=== PATIENT | female | born 1935 | race Caucasian/White ===

== ENCOUNTER 2017-12-07 15:55 | Inpatient (IN) ==
[2017-12-07 16:14] VITALS: BMI 32.0
--- NOTE | 2017-12-07 16:20 | IRU History & Physical Report ---
HPI IRU Date: Date: 12/07/17 Time: 161 Chief complaint: My knee hurts HPI: Ms. Polo is a pleasant 82-year-old female referred by Dr. Briseno. Her primary care physician is Dr. Bernardo Ortiz. She was seen by Dr. Hudson on 2017. She was having a progressive problem with right knee pain secondary to primary degenerative arthritis. It was recommended the patient undergo a right total knee arthroplasty. She was admitted to the hospital on December 03 for the procedure which was done by Dr. Hudson without complications. The patient seemed to be stable and she was dismissed to home on December 04. She states that she was feeling well at the time of dismissal and seemed to be doing well with regard to therapy. She then presented to the emergency department today on 12/07/2017 with inability to ambulate around the house. She was having significant pain in the right knee. The patient had been taking oxycodone but that was discontinued because it was affecting her mental status. Patient is unable to ambulate and she has had ongoing pain which is 10 out of 10 in intensity. History is obtained from the patient as well as her daughter. Her daughter states that every time she takes the oxycodone she gets very confused and "loopy." She loses her memory. She is disoriented. She also has had nausea but has no emesis (has history of Ayaka fundoplication). She became so weak that she had to be carried to the bathroom. She had no strength in her arms. She simply could not be cared for at home at this time. She has a history of coronary artery disease as well as hypertension. She recalls that she has had at least 3 cardiac stent placements with the most recent being in 2008. Her steel fixer is Dr. Altamirano. In addition she has atrial fibrillation. Electrocardiogram did confirm this. She does not believe she has been on any other blood thinners besides Plavix plus aspirin. She is aware of having had atrial fibrillation but really cannot tell when she goes in or out of it. She does report that she has been in and out of atrial fibrillation in the past. She does have the use of Plavix and aspirin on a regular basis. Her hemoglobin on the day of surgery or shortly thereafter was 10.7 g percent. Today it is 9.6 g percent. She denies any evidence of overt bleeding in the GI tract etc. However she does feel extremely weak and fatigued. She also appears to be quite pale. She has struggled with constipation since the surgery. In addition, her liver enzymes are slightly elevated for uncertain reasons. She is a . She lives in a duplex at [facility]. She has been independent at home prior to this episode. She does use a single-point cane. She lives alone. Prior level of functioning is as follows: She was independent for eating, grooming, bathing, upper and lower body dressing and toileting. She was modified independent for bed/chair/wheelchair transfers, toilet transfers and walking with a single-point cane. Current level of functioning is as follows: She is independent for eating but requires moderate assistance for grooming, minimal assistance for upper body dressing but maximum assistance for lower body dressing. Bed/chair/wheelchair transfers are total assist. Walking is total assist with a rolling walker only 9 feet. She is unable to climb stairs. The patient is admitted to acute rehabilitation because of uncontrolled pain, confusion while on pain medications as well as atrial fibrillation and hypertension. The following medical conditions are noted and require active monitoring and/or management: 1. Uncontrolled pain and confusion while taking pain medication. 2. acute blood loss anemia 3. Paroxysmal atrial fibrillation 4. Slow transit constipation The following therapies will be needed: 1. Physical therapy: for transfers and ambulation and stairs. 2. Occupational therapy: for ADL's and transfers. 3. Medical management: for the above conditions. 4. 24 hour Rehabilitation Nursing to monitor and address the following: Monitor patient's cardiac status and rhythm, monitor blood pressure, provide adequate pain control and assessment. [facility] Patient Stated Medical History Coronary Artery Disease Yes: stents x2 Gastroesophageal Reflux Yes: S/P Ayaka Disease Hx Urinary Tract Infection Yes Anemia Yes Clinic Medical History (Last Reviewed 11/13/17 @ 07:35 by Bryson Hudson MD) Anxiety (Chronic Medical) CAD (coronary artery disease) (Chronic Medical) Depression (Chronic Medical) HTN (hypertension) (Chronic Medical) High cholesterol (Chronic Medical) Macular degeneration (Chronic Medical) Breast cancer (Resolved Medical) Heart attack (Resolved Medical) Medical History Updates: 1. Had breast lumpectomy and malignancy was found over 11 years ago. She saw an oncologist but states that she did not take any chemotherapy, hormonal therapy nor radiation. No recurrence has been noted. 2. Paroxysmal atrial fibrillation, not on anticoagulants except for Plavix and aspirin. 3. Primary degenerative arthritis of the knees. 4. Hypertension Surgical History: TRKA - Dr Hudson 12/03/17, stent LAD/RCA, lumbar surgery, hysterectomy, cholecystectomy, lumpectomy, b/l cataracts Family History: Family History (Last Reviewed 11/13/17 @ 07:35 by Byrson Hudson MD) Father COPD (chronic obstructive pulmonary disease) Mother Heart failure Family History Updates: reviewed. Patient states that her father actually from heart disease. He also smoked on a regular basis and had COPD. - Social History Smoking status: Never smoker Substance use type: does not use Alcohol intake: never Alcohol intake frequency: does not drink Housing: apartment (duplex, independently.) Household members: none Current occupational status: retired Current residence: Apartment/Private Home (lives at [facility] duplexes independently.) Social history: Patient lives alone. 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 Has been a about 15 years. Lives in a duplex at [facility]. Review of Systems - Constitutional Constitutional: Present: anorexia, fatigue, weakness. Absent: chills, fever(s) , headache(s), lethargy, malaise, night sweats, weight gain, weight loss - EENMT Eyes: Absent: blurry vision, change in vision, diplopia Mouth/Throat: Absent: changes in swallowing, painful swallowing, change in taste , bleeding gums, change in voice - Cardiovascular Cardiovascular: Absent: chest pain, palpitations, syncope, dyspnea on exertion, orthopnea, edema, cyanosis, heart murmur Rhythm: Present: abnormal rhythm Vascular: Absent: intermittent claudication, pedal edema, unilateral swelling - Respiratory Respiratory: Present: dyspnea (reports current dyspnea with activity.), dyspnea on exertion. Absent: cough, hemoptysis, wheezing, pain on inspiration, chest congestion, excessive phlegm production - Gastrointestinal Gastrointestinal: Present: constipation (severe constipation since the surgery.) . Absent: abdominal pain, change in bowel habits, diarrhea, dyspepsia, dysphagia, early satiety, hematochezia, melena, nausea, vomiting - Musculoskeletal Musculoskeletal: Present: arthralgias. Absent: abnormal gait, back pain, joint swelling, limited range of motion, muscle weakness - Integumentary/Breasts Integumentary: Absent: alopecia, erythema, lesions, pruritus, rash, jaundice - Neurological Neurological: Present: weakness. Absent: abnormal gait, abnormal movements, abnormal speech, confusion, convulsions, dizziness, focal weakness, frequent falls, headache(s), loss of vision, memory loss, numbness, paresthesias, tremor( s) - Psychiatric Psychiatric: Absent: abnormal sleep pattern, anxiety, depression - Endocrine Endocrine: Absent: cold intolerance, flushing, heat intolerance, palpitations - Hematologic/Lymphatic Hematologic/Lymphatic: Absent: easy bleeding, easy bruising, lymphadenopathy - Allergic/Immunologic Allergic/Immunologic: Absent: urticaria Medications Home Medications Medication Instructions Recorded Confirmed Type Aspirin [Ecotrin] 81 mg PO DAILY #0 10/14/10 12/07/17 History Levothyroxine Tab [Synthroid] 50 mcg PO DAILY #0 10/14/10 12/07/17 History Pantoprazole Sodium [Protonix] 40 mg PO DAILY #0 12/08/12 12/07/17 History Potassium Chloride 10 meq PO DAILY #0 12/08/12 12/07/17 History Simvastatin [Zocor] 40 mg PO HS #0 12/08/12 12/07/17 History Calcium Carbonate/Vitamin D3 1 tab PO BID 12/02/17 12/07/17 History [Calcium 600 + Vit D Tablet] Clopidogrel [Plavix] 75 mg PO DAILY 12/02/17 12/07/17 History Cyanocobalamin (Vitamin B-12) 2,500 mcg PO DAILY 12/02/17 12/07/17 History [Vitamin B12] Furosemide [Lasix] 40 mg PO DAILY 12/02/17 12/07/17 History Glucosamine/MSM/Chondroitin A 1 tab PO BID 12/02/17 12/07/17 History [Glucosamine Chondroit MSM Tab] Magnesium 250 mg PO DAILY 12/02/17 12/07/17 History Vit C/Vit E/Lutein/Min/Bucoda-3 1 cap PO DAILY 12/02/17 12/07/17 History [Ocuvite Softgel] Citalopram [Celexa] 30 mg PO DAILY 12/03/17 12/07/17 History Metoprolol Tartrate [Lopressor] 25 mg PO BID 12/03/17 12/07/17 History lamoTRIgine [Lamotrigine] 100 mg PO HS 12/03/17 12/07/17 History Acetaminophen [Tylenol] 650 mg PO QID tab 12/04/17 12/07/17 Rx Docusate Sodium [Colace] 100 mg PO BID cap 12/04/17 12/07/17 Rx Milk of Magnesia [Mom] 30 ml PO DAILY udc 12/04/17 12/07/17 Rx Oxycodone *IR* [Roxicodone *Ir*] 5 - 15 mg PO Q3H PRN #30 tab 12/04/17 12/07/17 Rx PEG 3350 17gm PACKET [Miralax] 17 gm PO DAILY packet 12/04/17 12/07/17 Rx Ergocalciferol (Vit. D2) [Vitamin 50,000 unit PO DAILY 12/07/17 12/07/17 History D-2] Allergies Allergy/AdvReac Type Severity Reaction Status Date / Time ticlopidine Allergy Unknown WIPED OUT Verified 12/07/17 11:56 HER WBC'S Results IRU - Labs Labs: Have reviewed chart records. Exam Vital Signs: Temperature 99.0 F 12/07/17 16:12 Pulse Rate 100 12/07/17 16:12 Respiratory Rate 18 12/07/17 16:12 Blood Pressure 139/72 12/07/17 16:12 Pulse Oximetry 95 12/07/17 16:12 Height/Weight/BMI: Height 1.6 m Weight 82 kg Body Mass Index 32.0 - Constitutional Present: no acute distress, well nourished, well developed, obese, cooperative - Routine HEENT Exam Head: Present: normocephalic, atraumatic. Absent: cushingoid faces, abrasion, laceration, hematoma Eye: Present: EOMI, PERRL. Absent: conjunctival icterus, scleral injection, periorbital swelling, nystagmus ENT: Present: mucous membranes moist, oropharynx clear - Routine Neck Exam Present: supple, full ROM, trachea midline. Absent: lymphadenopathy, thyromegaly, tenderness, swelling - Routine Chest/Breast/Axilla Exam Chest wall: Absent: tenderness, mass Axillae: Absent: lymphadenopathy, mass - Routine Respiratory Exam Present: CTA bilaterally. Absent: accessory muscle use, decreased breath sounds , prolonged expiratory phase, rales, respiratory distress, rhonchi, stridor, wheezes, crackles, distant breath sounds - Routine Cardiovascular Exam Present: S1, S2, no murmur, irregularly irregular. Absent: gallop, S3, S4, click, irregular rhythm - Routine Abdominal Exam Present: soft, normoactive bowel sounds, non distended, non tender. Absent: rebound, guarding, firm, rigid, organomegaly, mass, hernia, wound - Routine Extremities Exam Present: no edema, non tender, pulses intact, normal capillary refill. Absent: cyanosis, clubbing Comments: Left knee shows evidence of degenerative changes. Right knee is the operated side. A dressing in place. Some surrounding ecchymoses but no erythema and no evidence of infection. No significant edema downstream. - Routine Back/Spine/Pelvis Exam Back/Spine: Present: full ROM. Absent: scoliosis, kyphosis - Routine Skin Exam Present: intact, dry, warm. Absent: cyanosis, erythema, pallor, mottling, petechiae, urticaria, lesions, jaundice - Routine Neurological Exam Present: alert, oriented X3, CN II-XII intact, moving all extremities, normal speech - Routine Psychiatric Exam Present: normal affect, normal thought process, cooperative, good insight, good judgment. Absent: depressed, anxious Sepsis Assessment - Evaluation Severe Sepsis: none seen IRU A/P (1) S/P total knee arthroplasty Qualifiers: Laterality: right Qualified Code(s): Z96.651 - Presence of right artificial knee joint Current visit: Yes Status: Acute Patient has been quite debilitated since the initial anesthesia wore off. She was stable at the time of dismissal from the hospital but has failed outpatient treatment. She is not able to tolerate oxycodone and apparently had problems with other narcotics in the past. This presents difficulty with regard to pain management. We will utilize Tylenol on a regular basis as well as ice pack and mobilization. She is not a candidate for ibuprofen in view of the use of Plavix and aspirin as well as recent anemia. (2) Hypertension Qualifiers: Hypertension type: essential hypertension Qualified Code(s): I10 - Essential (primary) hypertension Current visit: Yes Status: Chronic (3) Acute blood loss anemia Current visit: Yes Status: Acute She has dropped at least 1 g of hemoglobin since surgery. She appears to be pale. We will monitor this carefully. (4) Debility Current visit: No Status: Acute (5) A-fib Qualifiers: Atrial fibrillation type: paroxysmal Qualified Code(s): I48.0 - Paroxysmal atrial fibrillation Current visit: No Status: Chronic (6) Slow transit constipation Current visit: Yes Status: Acute She has not had a bowel movement since surgery. DVT Prophylaxis: SCD's, Lovenox Resuscitation Status: Full Code - Course Hospital Course: Yogi Madrid MD: - Interventions to Obtain Goals PT Treatment Plan: Balance/Proprioception, Functional Activities, Gait Training , Patient/Family Education, Therapeutic Exercise OT Treatment Plan: ADL (Basic Care), Balance Training, IADL, Pt./Family Education, Ther. Exercise for ADL Goals Progress/Modifications: Patient has failed outpatient therapy. She was totally debilitated and had to be carried to the bathroom. She is unable to tolerate narcotic pain medication. She will be treated with a multidisciplinary approach using OT, PT, ice packs, Tylenol etc. She requires medical supervision in view of the acute blood loss anemia, paroxysmal atrial fibrillation, slow transient constipation and her hypertension as well as uncontrolled pain.
--- NOTE | 2017-12-07 16:30 | IRU 24Hr Post Admit Eval ---
24 Hr Post Admission Physical - Relevant Changes Relevant Changes: No Reviewed: I have reviewed the patient's information and concur with the finding and results of the pre-admission screen. Certification: I certify the patient for rehabilitation. - Patient Condition (1) S/P total knee arthroplasty Status: Acute Qualifiers: Laterality: right Qualified Code(s): Z96.651 - Presence of right artificial knee joint Code(s): Z96.659 - Presence of unspecified artificial knee joint Classification: Present on IRF Admission, IRF Tx That Should Address Diagnosis, Diagnosis Requiring Medical Follow Up (2) Hypertension Status: Chronic Qualifiers: Hypertension type: essential hypertension Qualified Code(s): I10 - Essential (primary) hypertension Code(s): I10 - Essential (primary) hypertension Classification: Present on IRF Admission, IRF Tx That Should Address Diagnosis, Diagnosis Requiring Medical Follow Up (3) Acute blood loss anemia Status: Acute Code(s): D62 - Acute posthemorrhagic anemia Classification: Present on IRF Admission, IRF Tx That Should Address Diagnosis, Diagnosis Requiring Medical Follow Up (4) Debility Status: Acute Code(s): R53.81 - Other malaise Classification: Present on IRF Admission, IRF Tx That Should Address Diagnosis (5) A-fib Status: Chronic Qualifiers: Atrial fibrillation type: paroxysmal Qualified Code(s): I48.0 - Paroxysmal atrial fibrillation Code(s): I48.91 - Unspecified atrial fibrillation Classification: Present on IRF Admission, IRF Tx That Should Address Diagnosis, Diagnosis Requiring Medical Follow Up (6) Slow transit constipation Status: Acute Code(s): K59.01 - Slow transit constipation Classification: Present on IRF Admission, IRF Tx That Should Address Diagnosis, Diagnosis Requiring Medical Follow Up - Prior Functional Status Lives With: Alone Residence Type: Apartment/Private Home Assitive Devices: Straight Cane Prior Functional Status: Indep. at home or school, Used assistive device, Indep. w/ IADL - Current Functional Status Current Level of Function: Current level of functioning is as follows: She is independent for eating but requires moderate assistance for grooming, minimal assistance for upper body dressing but maximum assistance for lower body dressing. Bed/chair/wheelchair transfers are total assist. Walking is total assist with a rolling walker only 9 feet. She is unable to climb stairs. Failed Alternative Therapy: Yes (failed outpatient management) Patient Requirements: The patient requires oversight by rehabilitation physician to manage their rehabilitation treatment plan and multidisciplinary approach to care that can only be provided in an IRF and requires a multidisciplinary approach to care, provided by professional PTs, OTs, STs, dieticians, RTs, rehabilitation nurses and is not available in lesser levels of care. Limitations Req: Mobility Impairment, ADL Impairment Physical Therapy Minutes: 90 Occupational Therapy Minutes: 90 Therapy: The patient is to receive therapy at least 5 days a week. ROM Deficit: Right Lower Extremity - Complications/Comorbidities Impact on Functional Outcomes: Patient's difficulty with pain management will negatively impact her functional outcome. Barriers to Discharge: Weakness, Balance, Endurance, Pain Control - Plan to Avoid Complications Plan to Avoid Complications: The patient cannot receive this care in a lesser intensive setting such as Shelter or Outpatient Therapy due to the patient requiring the following : Patient requires 24 rehabilitation nursing monitoring and treatment of her pain, monitoring of the wound, monitoring of her cardiac status in view of paroxysmal atrial fibrillation as well as hypertension. She requires a multidisciplinary approach with PT and OT with medical supervision.
[2017-12-07] MEDS ORDERED: FALL RISK - PHARMACY CONSULT MC ONE (16:59)
[2017-12-07] MEDS: POLYETHYL GLYCOL 3350 17gm PACKET PO SCH (17:43)
[2017-12-07] MEDS: GLUCOSAMINE/CHONDROITIN 500 MG/400 MG CAPSULE PO SCH (19:54)
[2017-12-07] MEDS: DOCUSATE SODIUM 100 MG CAPSULE PO SCH (19:54)
[2017-12-07] MEDS: SIMVASTATIN 40 MG TABLET PO SCH (19:55)
[2017-12-07] MEDS: LAMOTRIGINE 100 MG TABLET PO SCH (19:55)
[2017-12-08] MEDS: LAMOTRIGINE 100 MG TABLET PO SCH ×2 (02:26→20:04)
[2017-12-08] MEDS: SIMVASTATIN 40 MG TABLET PO SCH ×2 (02:26→20:04)
[2017-12-08] MEDS: GLUCOSAMINE/CHONDROITIN 500 MG/400 MG CAPSULE PO SCH ×3 (02:26→20:04)
[2017-12-08] MEDS: DOCUSATE SODIUM 100 MG CAPSULE PO SCH ×3 (02:26→20:03)
[2017-12-08] MEDS: PANTOPRAZOLE 40 MG TABLET PO SCH ×2 (04:59→09:03)
[2017-12-08] MEDS: LEVOTHYROXINE 50 MCG TABLET PO SCH ×2 (04:59→09:03)
[2017-12-08] MEDS: MAGNESIUM OXIDE 400 MG TABLET PO SCH (08:57)
--- NOTE | 2017-12-08 08:57 | Consult Note ---
Consult Information - Data of Consult Consult date: 12/08/17 Requesting Physician: Yogi Madrid MD Primary Care Provider: Bernardo Ortiz DO Family Provider: Bernardo Ortiz DO - Consult Narrative Reason for consult: medical management History of present illness: Ale Polo is an 82 y/o seen in consultation from Dr. Madrid. She underwent an elective right total knee replacement on 11/09/[address] Hudson, which went well without complications. She was discharged the following day in stable condition. However, she began having increased right knee pain. She wasn't able to tolerate Rx oxycodone b/c of confusion and difficulty thinking straight. She became weak, lightheaded, and dizzy. She wasn't able to ambulate on her own anymore, let alone perform her ADLs. She also noted some nausea and had constipation at home. She denied any fever/chills, cough/congestion, SOA, chest pain, palpitations, syncope, abdominal pain, vomiting, dysuria, or unexpected leg swelling. Because of profound weakness, she presented to [facility] on 12/07/17, where she was referred to IRU. Past Medical History Anxiety Depression PAF - not anticoagulated CAD (coronary artery disease) with history of [place] HTN (hypertension) (Chronic Medical) High cholesterol (Chronic Medical) Macular degeneration Breast cancer s/p breast lumpectomy over 11 years ago; no chemotherapy, hormonal therapy, nor radiation. No recurrence has been noted. Obesity, BMI 32 Surgical History: TRKA - Dr Hudson 12/03/17, stents to LAD/RCA, [place] fundoplication, breast lumpectomy, lumbar surgery, hysterectomy, cholecystectomy , lumpectomy, b/l cataracts Family History: Father: smoker with COPD (chronic obstructive pulmonary disease); from heart disease. Mother: Heart failure Family History Updates: Reviewed. 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 Absent: chills, fever(s), headache(s) - EENMT Eyes: Absent: change in vision Nose: Absent: obstruction Mouth/Throat: Absent: sore throat - Cardiovascular Cardiovascular: Absent: chest pain, palpitations Vascular: Absent: pedal edema - Respiratory Respiratory: Absent: dyspnea - Gastrointestinal Gastrointestinal: Present: constipation (resolved). Absent: abdominal pain, nausea, vomiting - Genitourinary Genitourinary: Absent: dysuria - Musculoskeletal Musculoskeletal: Present: as per HPI, muscle weakness. Absent: back pain - Integumentary/Breasts Integumentary: Present: other (right knee incision) - Neurological Neurological: Present: abnormal gait, dizziness, weakness. Absent: numbness, paresthesias - Psychiatric Psychiatric: Present: anxiety, depression - Endocrine Endocrine: Absent: palpitations - Hematologic/Lymphatic Hematologic/Lymphatic: Present: easy bruising Medications Home Medications Medication Instructions Recorded Confirmed Type Aspirin [Ecotrin] 81 mg PO DAILY #0 10/14/10 12/07/17 History Levothyroxine Tab [Synthroid] 50 mcg PO DAILY #0 10/14/10 12/07/17 History Pantoprazole Sodium [Protonix] 40 mg PO DAILY #0 12/08/12 12/07/17 History Potassium Chloride 10 meq PO DAILY #0 12/08/12 12/07/17 History Simvastatin [Zocor] 40 mg PO HS #0 12/08/12 12/07/17 History Calcium Carbonate/Vitamin D3 1 tab PO BID 12/02/17 12/07/17 History [Calcium 600 + Vit D Tablet] Clopidogrel [Plavix] 75 mg PO DAILY 12/02/17 12/07/17 History Furosemide [Lasix] 40 mg PO DAILY 12/02/17 12/07/17 History Glucosamine/MSM/Chondroitin A 1 tab PO BID 12/02/17 12/07/17 History [Glucosamine Chondroit MSM Tab] Magnesium 250 mg PO DAILY 12/02/17 12/07/17 History Vit C/Vit E/Lutein/Min/[place]-3 1 cap PO DAILY 12/02/17 12/07/17 History [Ocuvite Softgel] Citalopram [Celexa] 30 mg PO DAILY 12/03/17 12/07/17 History Metoprolol Tartrate [Lopressor] 25 mg PO BID 12/03/17 12/07/17 History lamoTRIgine [Lamotrigine] 100 mg PO HS 12/03/17 12/07/17 History Acetaminophen [Tylenol] 650 mg PO QID tab 12/04/17 12/07/17 Rx Docusate Sodium [Colace] 100 mg PO BID cap 12/04/17 12/07/17 Rx Milk of Magnesia [Mom] 30 ml PO DAILY udc 12/04/17 12/07/17 Rx Oxycodone *IR* [Roxicodone *Ir*] 5 - 15 mg PO Q3H PRN #30 tab 12/04/17 12/07/17 Rx PEG 3350 17gm PACKET [Miralax] 17 gm PO DAILY packet 12/04/17 12/07/17 Rx Ergocalciferol (Vit. D2) [Vitamin 50,000 unit PO DAILY 12/07/17 12/07/17 History D-2] Allergies Allergy/AdvReac Type Severity Reaction Status Date / Time ticlopidine Allergy Unknown WIPED OUT Verified 12/07/17 11:56 HER WBC'S Exam Vital Signs: Temperature 97.8 F 12/08/17 08:00 Pulse Rate 73 12/08/17 08:00 Respiratory Rate 12 12/08/17 08:00 Blood Pressure 132/69 12/08/17 08:00 Pulse Oximetry 94 12/07/17 21:01 Height/Weight/BMI: Height 1.6 m Weight 82 kg Body Mass Index 32.0 - Constitutional Present: no acute distress, well nourished, well developed, obese - Routine HEENT Exam Head: Present: normocephalic Eye: Present: PERRL. Absent: conjunctival icterus, scleral injection ENT: Present: mucous membranes moist - Routine Neck Exam Present: supple. Absent: lymphadenopathy - Routine Respiratory Exam Present: CTA bilaterally - Routine Cardiovascular Exam Present: irregularly irregular - Routine Abdominal Exam Present: soft, normoactive bowel sounds, non distended, non tender - Routine Extremities Exam Present: no edema (trace right leg), pulses intact, normal capillary refill - Routine Skin Exam Present: intact, dry, warm, wounds (right knee with mepilex dressing intact) - Routine Neurological Exam Present: alert, oriented X3, CN II-XII intact, moving all extremities, vision grossly intact, hearing grossly intact, normal speech. Absent: sensory deficit - Routine Psychiatric Exam Present: normal affect, normal thought process, cooperative Results - Labs CBC & Chem 7: 12/08/17 04:08 12/08/17 04:08 Assessment and Plan (1) S/P total knee arthroplasty Current visit: Yes Status: Acute Assessment and Plan: IMPRESSION ABLA Rt total knee arthroplasty 12/03/17 Constipation Acute debility Intolerance to narcotics Anxiety Depression PAF - not anticoagulated CAD (coronary artery disease) with history of CA HTN (hypertension) (Chronic Medical) High cholesterol (Chronic Medical) Macular degeneration Breast cancer s/p breast lumpectomy over 11 years ago; no chemotherapy, hormonal therapy, nor radiation. No recurrence has been noted. Obesity, BMI 32 PLAN Agree with PT/OT and analgesia orders per Dr. Madrid. Agree with tele d/t known hx of A-fib. Pt follows with Dr. Femi Altamirano. Mild ABLA - monitor for symptoms, declining hgb. Constipation improved (pt had BM this am) - will continue with bowel regimen. Resume home meds. VSS. Consult ortho if needed. Thank you for this consultation. GI Prophylaxis: Protonix Resuscitation Status: Full Code - Physician Narrative Physician: Beverly Hudson MD Narrative: Date: 12/08/17 Time: 1500 I have independently evaluated and examined this patient. I reviewed the chart, the patient's history, and the SAWMILL SUPERVISOR/PA's documented findings as above. We discussed and formulated the assessment and plan as above with additions as below: Mrs. Polo was seen after working with physical therapy. She reports fatigue but adequate pain control. She denied nausea or constipation. She had no immediate concerns. NAD, alert Respirations nonlabored, good airflow, irregular cardiac rhythm No inflammation over the right knee, surgical dressing in place, trace edema at the ankles Labs as noted above; hemoglobin relatively stable from postoperative day one. Telemetry strips reviewed-atrial fibrillation with adequate rate control. Continue home medications for chronic medical problems. Monitor hemoglobin intermittently. Medically stable at present. Please note patient plans to follow-up with [facility] in [place] in the future. Hospital Course Summary Disclaimer: The visit summary below is not to be considered part of the above Progress Note. Hospital Course: 12/08 Agree with PT/OT and analgesia orders per Dr. Madrid. Agree with tele d/t known hx of A-fib. Pt follows with Dr. Femi Altamirano. Mild ABLA - monitor for symptoms, declining hgb. Constipation improved (pt had BM this am) - will continue with bowel regimen. Resume home meds. VSS.
[2017-12-08] MEDS: MULTI-VIT + MINERAL (Opti-gen) TABLET PO SCH (08:58)
[2017-12-08] MEDS: ERGOCALCIFEROL 50,000 UNIT CAPSULE PO SCH (08:58)
[2017-12-08] MEDS: FUROSEMIDE 40 MG TABLET PO SCH (08:58)
[2017-12-08] MEDS: CALCIUM 600 + VIT D 400 TABLET PO SCH (08:58)
[2017-12-08] MEDS: CLOPIDOGREL 75 MG TABLET PO SCH (08:59)
[2017-12-08] MEDS: ASPIRIN *EC* 81 MG TABLET PO SCH (08:59)
[2017-12-08] MEDS: CITALOPRAM 20 MG TABLET PO SCH (08:59)
[2017-12-08] MEDS: POLYETHYL GLYCOL 3350 17gm PACKET PO SCH (09:00)
--- NOTE | 2017-12-08 10:47 | IRU Progress Note ---
- Subjective/Serverity of Illness Date: 12/08/17 Ale reports that her knee is hurting particularly with therapy. She knows that it is swollen quite a bit. We will place an ice pack. Denies any fever or chills. She denies any nausea or vomiting and denies any shortness of breath. She denies any chest pain. Continues in atrial fibrillation both clinically and on telemetry. Just starting with therapy. Guarding her acute blood loss anemia, her hemoglobin is 9.4 g percent which is roughly stable from yesterday. She appears less pale. Exam Vital Signs: Temperature 97.8 F 12/08/17 08:00 Pulse Rate 87 12/08/17 08:00 Respiratory Rate 12 12/08/17 08:00 Blood Pressure 132/69 12/08/17 08:00 Pulse Oximetry 94 12/07/17 21:01 Height/Weight/BMI: Height 1.6 m Weight 82 kg Body Mass Index 32.0 - Constitutional Present: no acute distress, well nourished, well developed, cooperative - Routine HEENT Exam Eye: Present: EOMI ENT: Present: mucous membranes moist, oropharynx clear - Routine Neck Exam Present: supple - Routine Respiratory Exam Present: CTA bilaterally. Absent: wheezes - Routine Cardiovascular Exam Present: S1, S2, irregularly irregular. Absent: murmur - Routine Abdominal Exam Present: soft, normoactive bowel sounds, non distended. Absent: tenderness - Routine Extremities Exam Present: no edema (right knee itself is somewhat puffy although there is no edema downstream.) - Routine Skin Exam Present: dry, warm, ecchymosis (right knee area as anticipated.) - Routine Neurological Exam Present: alert, oriented X3, CN II-XII intact - Routine Psychiatric Exam Present: normal affect, cooperative, anxious Results IRU - Labs Labs: Have reviewed other providers notes as well as lab and vital signs. IRU A/P (1) S/P total knee arthroplasty Qualifiers: Laterality: right Qualified Code(s): Z96.651 - Presence of right artificial knee joint Current visit: Yes Status: Acute We'll utilize an ice pack for the right knee. She seems to be tolerating therapy reasonably well with the use of extended release Tylenol. She has had adverse reactions to narcotics so we are trying to avoid those. (2) Hypertension Qualifiers: Hypertension type: essential hypertension Qualified Code(s): I10 - Essential (primary) hypertension Current visit: Yes Status: Chronic Her blood pressures seem to be well-controlled. (3) Acute blood loss anemia Current visit: Yes Status: Acute Stable at 9.4. (4) Slow transit constipation Current visit: Yes Status: Acute (5) Paroxysmal atrial fibrillation Current visit: Yes Status: Chronic Telemetry reveals atrial fibrillation as is present upon clinical examination. Appears to be fairly asymptomatic. Remains on Plavix plus aspirin. DVT Prophylaxis: SCD's, Lovenox Resuscitation Status: Full Code - Course Hospital Course: Yogi Madrid MD: 12/08/17 10:49 Continues in atrial fibrillation. Pain management reasonable at present with extended release Tylenol. - Interventions to Obtain Goals PT Treatment Plan: Balance/Proprioception, Functional Activities, Gait Training , Patient/Family Education, Therapeutic Exercise OT Treatment Plan: ADL (Basic Care), Balance Training, IADL, Pt./Family Education, Ther. Exercise for ADL Goals Progress/Modifications: She is settling into the rehabilitation routine fairly well. We will utilize an ice pack on the right knee. Remains in atrial fibrillation with reasonably controlled response at present. Seems to be asymptomatic in this regard.Please note that the patient's individual plan of care was developed and documented today, requiring review of therapy notes, medical conditions and anticipated functional recovery. This required additional medical decision making with regard to interaction of the patient's medical issues with the anticipated functional recovery. Please see separate document
--- NOTE | 2017-12-08 10:52 | IRU Plan of Care ---
[facility] Overall Plan of Care - Date Date: 12/08/17 - Patient Impairments (1) S/P total knee arthroplasty Qualifiers: Laterality: right Qualified Code(s): Z96.651 - Presence of right artificial knee joint Code(s): Z96.659 - Presence of unspecified artificial knee joint Status: Acute Classification: Present on IRF Admission, IRF Tx That Should Address Diagnosis, Diagnosis Requiring Medical Follow Up (2) Hypertension Qualifiers: Hypertension type: essential hypertension Qualified Code(s): I10 - Essential (primary) hypertension Code(s): I10 - Essential (primary) hypertension Status: Chronic Classification: Present on IRF Admission, IRF Tx That Should Address Diagnosis, Diagnosis Requiring Medical Follow Up (3) Acute blood loss anemia Code(s): D62 - Acute posthemorrhagic anemia Status: Acute Classification: Present on IRF Admission, IRF Tx That Should Address Diagnosis, Diagnosis Requiring Medical Follow Up (4) Slow transit constipation Code(s): K59.01 - Slow transit constipation Status: Acute Classification: Present on IRF Admission, IRF Tx That Should Address Diagnosis, Diagnosis Requiring Medical Follow Up (5) Paroxysmal atrial fibrillation Code(s): I48.0 - Paroxysmal atrial fibrillation Status: Chronic Classification: Present on IRF Admission, Diagnosis Requiring Medical Follow Up - Relevant Changes Relevant Changes: No Reviewed: I have reviewed the patient's information and concur with the finding and results of the pre-admission screen. Certification: I certify the patient for rehabilitation. - Medical Prognosis Medical Prognosis: Good Vital Signs: Last Vital Signs Temp 97.8 F 12/08/17 08:00 Pulse 87 12/08/17 08:00 Resp 12 12/08/17 08:00 BP 132/69 12/08/17 08:00 Pulse Ox 94 12/07/17 21:01 - Anticipated Interventions Anticipated Interventions: The patient requires inpatient IRF care for PT and OT for residuals remaining from right total knee arthroplasty resulting in muscular weakness and strength deficits. An individualized overall plan of care has been developed after careful review of the patient's preadmission screening, post admission physician evaluation and assessments of all therapy disciplines and/or other pertinent clinicians involved in treating the patient. This indicates medical necessity and rehabilitation necessity have been established through a thorough review of all available medical information. ROM Deficit: Right Lower Extremity Strength Deficits: Right Lower Extremity - Current Functional Status Failed Alternative Therapy: Yes (cannot tolerate outpatient management due to pain medication and pain.) Patient Requires: The patient requires oversight by rehabilitation physician to manage their rehabilitation treatment plan and multidisciplinary approach to care that can only be provided in an IRF and requires a multidisciplinary approach to care, provided by professional PTs, OTs, STs, rehabilitation nurses, and may require STs, dieticians, and RTS. This is not available in lesser levels of care. Physical Therapy Minutes: 90 Occupational Therapy Minutes: 90 Therapy: The patient is to receive therapy at least 5 days a week. - Anticipated LOS/Outcomes Anticipated Functional Outcome: It is anticipated the patient will be able to return to her home at modified independent level of functioning for ambulation, transfers and ADLs. Anticipated Length of Stay (days): 10 Anticipated DC Destination: Home, Self Care, Home Health Service Home Safety Plan: The patient will be provided with the development of a Home Safety Plan for return to a home or home-like environment and and to ensure safety post discharge. - Plan to Avoid Complications Barriers to Attaining Goals: Weakness, Balance, Endurance, Pain Control Plan to Avoid Complications: The patient cannot receive this care in a lesser intensive setting such as Shelter or Outpatient Therapy due to the patient requiring the following : Patient requires 24 hour rehabilitation nursing monitoring of the wound as well as her pain and requires monitoring of blood pressure and pulse due to her atrial fibrillation. She requires monitoring of her cardiac status as well. In addition, she requires a multidisciplinary coordinated approach with PT and OT with medical supervision.
[2017-12-09] MEDS: PANTOPRAZOLE 40 MG TABLET PO SCH (06:10)
[2017-12-09] MEDS: LEVOTHYROXINE 50 MCG TABLET PO SCH (06:10)
[2017-12-09] MEDS: CITALOPRAM 20 MG TABLET PO SCH (07:59)
[2017-12-09] MEDS: CALCIUM 600 + VIT D 400 TABLET PO SCH (08:00)
[2017-12-09] MEDS: GLUCOSAMINE/CHONDROITIN 500 MG/400 MG CAPSULE PO SCH ×2 (08:01→20:35)
[2017-12-09] MEDS: MAGNESIUM OXIDE 400 MG TABLET PO SCH (08:01)
[2017-12-09] MEDS: DOCUSATE SODIUM 100 MG CAPSULE PO SCH ×2 (08:01→20:35)
[2017-12-09] MEDS: MULTI-VIT + MINERAL (Opti-gen) TABLET PO SCH (08:03)
[2017-12-09] MEDS: ASPIRIN *EC* 81 MG TABLET PO SCH (08:03)
[2017-12-09] MEDS: FUROSEMIDE 40 MG TABLET PO SCH (08:03)
[2017-12-09] MEDS: CLOPIDOGREL 75 MG TABLET PO SCH (08:03)
[2017-12-09] MEDS: POLYETHYL GLYCOL 3350 17gm PACKET PO SCH (08:05)
[2017-12-09] MEDS: TRAMADOL 50 MG TABLET PO PRN (14:26)
[2017-12-09] MEDS: LAMOTRIGINE 100 MG TABLET PO SCH (20:35)
[2017-12-09] MEDS: SIMVASTATIN 40 MG TABLET PO SCH (20:35)
[2017-12-10] MEDS: LEVOTHYROXINE 50 MCG TABLET PO SCH (06:29)
[2017-12-10] MEDS: TRAMADOL 50 MG TABLET PO PRN (06:29)
[2017-12-10] MEDS: PANTOPRAZOLE 40 MG TABLET PO SCH (06:29)
[2017-12-10] MEDS: ASPIRIN *EC* 81 MG TABLET PO SCH (08:31)
[2017-12-10] MEDS: CITALOPRAM 20 MG TABLET PO SCH (08:31)
[2017-12-10] MEDS: DOCUSATE SODIUM 100 MG CAPSULE PO SCH ×2 (08:31→21:44)
[2017-12-10] MEDS: CALCIUM 600 + VIT D 400 TABLET PO SCH (08:31)
[2017-12-10] MEDS: CLOPIDOGREL 75 MG TABLET PO SCH (08:31)
[2017-12-10] MEDS: FUROSEMIDE 40 MG TABLET PO SCH (08:32)
[2017-12-10] MEDS: GLUCOSAMINE/CHONDROITIN 500 MG/400 MG CAPSULE PO SCH ×2 (08:32→21:44)
[2017-12-10] MEDS: MAGNESIUM OXIDE 400 MG TABLET PO SCH (08:32)
[2017-12-10] MEDS: POLYETHYL GLYCOL 3350 17gm PACKET PO SCH (08:33)
[2017-12-10] MEDS: MULTI-VIT + MINERAL (Opti-gen) TABLET PO SCH (08:33)
--- NOTE | 2017-12-10 10:34 | Progress Note ---
- Date 12/10/17 Subjective: Ale is seen today while resting in her room between therapy. She is alert and pleasant without complaints. She reports post-op pain is minimal and she feels that she is getting stronger with therapy. Appetite is good and bowels are moving. Tele reviewed know rate controlled A-fib. Objective Vital signs: Temperature 98.3 F 12/10/17 08:00 Pulse Rate 71 12/10/17 08:00 Respiratory Rate 14 12/10/17 08:00 Blood Pressure 126/66 12/10/17 08:00 Pulse Oximetry 98 12/10/17 08:00 Rhythm: Atrial Fibrillation with Normal Ventricular Rate Height/Weight/BMI: Height 1.6 m Weight 82 kg Body Mass Index 32.0 - Constitutional Present: no acute distress, well nourished, well developed - Routine HEENT Exam Eye: Present: EOMI ENT: Present: mucous membranes moist, dentition normal - Routine Respiratory Exam Present: CTA bilaterally. Absent: wheezes - Routine Cardiovascular Exam Present: RRR, S1, S2. Absent: murmur - Routine Abdominal Exam Present: soft, normoactive bowel sounds, non distended. Absent: tenderness - Routine Extremities Exam Present: normal capillary refill - Routine Skin Exam Present: intact, dry, warm - Routine Neurological Exam Present: alert, oriented X3, CN II-XII intact - Routine Lymphatic Exam Lymphatic: Absent: adenopathy - Routine Psychiatric Exam Present: normal affect, cooperative Results - Labs CBC & Chem 7: 12/08/17 04:08 12/08/17 04:08 Assessment and Plan (1) S/P total knee arthroplasty Current visit: Yes Status: Acute Assessment and Plan: IMPRESSION ABLA Rt total knee arthroplasty 12/03/17 Constipation Acute debility Intolerance to narcotics Anxiety Depression PAF - not anticoagulated CAD (coronary artery disease) with history of [place] HTN (hypertension) (Chronic Medical) High cholesterol (Chronic Medical) Macular degeneration Breast cancer s/p breast lumpectomy over 11 years ago; no chemotherapy, hormonal therapy, nor radiation. No recurrence has been noted. Obesity, BMI 32 PLAN Overall doing well with therapy Discontinue telemetry- known A-fib that is rate controlled Chronically on ASA and Plavix Pain is being well controlled on Tylenol and tramadol Continue to encourage work with PT and OT for ongoing strengthening - Physician Narrative Narrative: Date: 12/10/17 Time: 1030 Hospital Course Summary Disclaimer: The visit summary below is not to be considered part of the above Progress Note. Hospital Course: 12/08 Agree with PT/OT and analgesia orders per Dr. Madrid. Agree with tele d/t known hx of A-fib. Pt follows with Dr. Femi Altamirano. Mild ABLA - monitor for symptoms, declining hgb. Constipation improved (pt had BM this am) - will continue with bowel regimen. Resume home meds. VSS. 12/10 Overall doing well with therapy Discontinue telemetry- known A-fib that is rate controlled Chronically on ASA and Plavix Pain is being well controlled on Tylenol and tramadol Continue to encourage work with PT and OT for ongoing strengthening
--- NOTE | 2017-12-10 11:31 | IRU Progress Note ---
- Subjective/Serverity of Illness Date: 12/10/17 Ale was interviewed and examined in her room on acute inpatient rehabilitation. She states that her pain in the knee is much improved at the present time. We did start tramadol yesterday. She had had tremendous difficulty with narcotic analgesics in the past with severe confusion. However she seems to be tolerating tramadol okay. She has had a couple doses at this point. She is having difficulty with bowel movements and does get quite fatigued with therapy. She does report occasional shortness of breath with activity but denies any chest pain. She continued to have just a bit of edema in the right lower extremity as anticipated. Clinically she seems to be in a regular rhythm but on telemetry she seems to be in atrial fibrillation. Discussed with the hospitalist service and we will plan to discontinue the telemetry. (It is noted that she is on Plavix plus aspirin but this time no other anticoagulant. We will continue to monitor and work with the hospitalist service in this regard.) Exam Vital Signs: Temperature 98.3 F 12/10/17 08:00 Pulse Rate 71 12/10/17 08:00 Respiratory Rate 14 12/10/17 08:00 Blood Pressure 126/66 12/10/17 08:00 Pulse Oximetry 98 12/10/17 08:00 Height/Weight/BMI: Height 1.6 m Weight 82 kg Body Mass Index 32.0 - Constitutional Present: mild distress, well nourished, well developed, obese, cooperative - Routine HEENT Exam Head: Present: normocephalic Eye: Present: EOMI ENT: Present: mucous membranes moist, oropharynx clear - Routine Respiratory Exam Present: CTA bilaterally. Absent: wheezes - Routine Cardiovascular Exam Present: RRR (as noted above, she seems to be in a regular rhythm although on telemetry she is in atrial fibrillation.), S1, S2. Absent: murmur - Routine Abdominal Exam Present: soft, normoactive bowel sounds, non distended. Absent: tenderness - Routine Extremities Exam Present: edema (trace to 1+ edema right lower extremity as anticipated. She says it is improved however.), normal capillary refill - Routine Skin Exam Present: dry, warm, ecchymosis (right leg) - Routine Neurological Exam Present: alert, oriented X3, CN II-XII intact - Routine Psychiatric Exam Present: normal affect, cooperative, depressed IRU A/P (1) S/P total knee arthroplasty Qualifiers: Laterality: right Qualified Code(s): Z96.651 - Presence of right artificial knee joint Current visit: Yes Status: Acute Pain management improved. She is taking regular doses of Tylenol and as needed tramadol and seems to be tolerating it well. (2) Hypertension Qualifiers: Hypertension type: essential hypertension Qualified Code(s): I10 - Essential (primary) hypertension Current visit: Yes Status: Chronic Her blood pressures are well controlled. (3) Acute blood loss anemia Current visit: Yes Status: Acute We will recheck her hemoglobin down the road. Currently no evidence of ongoing bleeding however. (4) Slow transit constipation Current visit: Yes Status: Acute (5) Paroxysmal atrial fibrillation Current visit: Yes Status: Chronic Remains in atrial fibrillation. Uncertain if this is paroxysmal or chronic. It is noted she is on Plavix plus aspirin. DVT Prophylaxis: SCD's, Lovenox Resuscitation Status: Full Code - Course Hospital Course: Yogi Madrid MD: 12/08/17 10:49 Continues in atrial fibrillation. Pain management reasonable at present with extended release Tylenol. 12/10/17 11:33 Cooperative with therapy. We added on tramadol and that has been of help. - Interventions to Obtain Goals PT Treatment Plan: Balance/Proprioception, Functional Activities, Gait Training , Patient/Family Education, Therapeutic Exercise OT Treatment Plan: ADL (Basic Care), Balance Training, IADL, Pt./Family Education, Ther. Exercise for ADL Goals Progress/Modifications: Pain management appears to be improved. She is tolerating tramadol well without evidence of side effects. (Cannot tolerate narcotic analgesics previously). Appetite is reasonable. Seems to remain in atrial fibrillation on telemetry. We will discontinue the telemetry. Have discussed case with hospitalists as well. Does have easy fatigability with therapy but tolerating therapy reasonably well. Continue current approach.
[2017-12-10] MEDS: LAMOTRIGINE 100 MG TABLET PO SCH (21:44)
[2017-12-10] MEDS: SIMVASTATIN 40 MG TABLET PO SCH (21:44)
[2017-12-11] MEDS: LEVOTHYROXINE 50 MCG TABLET PO SCH (05:51)
[2017-12-11] MEDS: PANTOPRAZOLE 40 MG TABLET PO SCH (05:51)
[2017-12-11] MEDS: TRAMADOL 50 MG TABLET PO PRN (07:37)
[2017-12-11] MEDS: CALCIUM 600 + VIT D 400 TABLET PO SCH (08:44)
[2017-12-11] MEDS: ASPIRIN *EC* 81 MG TABLET PO SCH (08:44)
[2017-12-11] MEDS: CITALOPRAM 20 MG TABLET PO SCH (08:45)
[2017-12-11] MEDS: GLUCOSAMINE/CHONDROITIN 500 MG/400 MG CAPSULE PO SCH ×2 (08:45→20:45)
[2017-12-11] MEDS: DOCUSATE SODIUM 100 MG CAPSULE PO SCH ×2 (08:45→20:45)
[2017-12-11] MEDS: CLOPIDOGREL 75 MG TABLET PO SCH (08:46)
[2017-12-11] MEDS: FUROSEMIDE 40 MG TABLET PO SCH (08:46)
[2017-12-11] MEDS: MULTI-VIT + MINERAL (Opti-gen) TABLET PO SCH (08:46)
[2017-12-11] MEDS: MAGNESIUM OXIDE 400 MG TABLET PO SCH (08:46)
[2017-12-11] MEDS: POLYETHYL GLYCOL 3350 17gm PACKET PO SCH (08:47)
--- NOTE | 2017-12-11 11:03 | IRU Progress Note ---
- Subjective/Serverity of Illness Date: 12/11/17 Ms. Polo was interviewed and examined in her room on inpatient rehabilitation. She reports that the pain in the knee seems to be better and that Ultram does adequately assist her with pain management. Previously she could not tolerate oxycodone. She reports also that her bowels are moving better. She denies any chest pain and denies shortness of breath. She is cooperative with therapy. Exam Vital Signs: Temperature 99.1 F 12/10/17 20:00 Pulse Rate 73 12/11/17 08:56 Respiratory Rate 16 12/11/17 08:56 Blood Pressure 123/63 12/11/17 08:56 Pulse Oximetry 99 12/11/17 08:56 Height/Weight/BMI: Height 1.6 m Weight 82 kg Body Mass Index 32.0 - Constitutional Present: no acute distress, well nourished, well developed, obese, cooperative - Routine HEENT Exam Head: Present: normocephalic Eye: Present: EOMI ENT: Present: mucous membranes moist, oropharynx clear - Routine Neck Exam Present: supple - Routine Respiratory Exam Present: CTA bilaterally. Absent: wheezes - Routine Cardiovascular Exam Present: S1, S2, irregularly irregular. Absent: murmur - Routine Abdominal Exam Present: soft, normoactive bowel sounds, non distended. Absent: tenderness - Routine Extremities Exam Present: edema (trace to 1+ edema right lower extremity as anticipated after knee replacement.), normal capillary refill - Routine Skin Exam Present: dry, warm, ecchymosis - Routine Neurological Exam Present: alert, oriented X3, CN II-XII intact - Routine Psychiatric Exam Present: normal affect IRU A/P (1) S/P total knee arthroplasty Qualifiers: Laterality: right Qualified Code(s): Z96.651 - Presence of right artificial knee joint Current visit: Yes Status: Acute Patient states that her pain management appears to be adequate with Tylenol and Ultram. She is cooperative with therapy and making progress. Team meeting today. (2) Hypertension Qualifiers: Hypertension type: essential hypertension Qualified Code(s): I10 - Essential (primary) hypertension Current visit: Yes Status: Chronic (3) Acute blood loss anemia Current visit: Yes Status: Acute Hemoglobin has been stable on 2 occasions at 9.4 and 9.2 g percent. There is no evidence of acute blood loss at present. (4) Slow transit constipation Current visit: Yes Status: Acute (5) Paroxysmal atrial fibrillation Current visit: Yes Status: Chronic DVT Prophylaxis: SCD's, Lovenox Resuscitation Status: Full Code - Course Hospital Course: Yogi Madrid MD: 12/08/17 10:49 Continues in atrial fibrillation. Pain management reasonable at present with extended release Tylenol. 12/10/17 11:33 Cooperative with therapy. We added on tramadol and that has been of help. 12/11/17 11:02 Pain management appears to be adequate. Mild edema as anticipated. Cooperative with therapy. - Interventions to Obtain Goals PT Treatment Plan: Balance/Proprioception, Functional Activities, Gait Training , Patient/Family Education, Therapeutic Exercise OT Treatment Plan: ADL (Basic Care), Balance Training, IADL, Pt./Family Education, Ther. Exercise for ADL
--- NOTE | 2017-12-11 12:55 | IRU Team Meeting ---
IRU Team Meeting - Nursing Bladder Assistive Devices Utilized:: Absorbent Pad Bladder Management Level of Assist: Stand By Assist/Supervision Bladder Frequency of Accidents: No accidents Bowel Assistive Devices Utilized:: Medication Bowel Management Level of Assist: Moderate Assistance Bowel Frequency of Accidents: No accidents Vital Signs: Vital Signs - 24 hr 12/10/17 16:00 12/10/17 20:00 12/11/17 08:56 Temperature 96.9 F 99.1 F Pulse Rate 71 64 73 Respiratory Rate 16 16 Blood Pressure 142/66 H 128/64 123/63 Pulse Oximetry 94 96 99 Current Medications: Acetaminophen (Tylenol Arthritis) 650 mg PO Q8HR [facility] Last Admin: 12/11/17 08:44 Dose: 650 mg Aspirin (Ecotrin) 81 mg PO DAILY [facility] Last Admin: 12/11/17 08:44 Dose: 81 mg Calcium/Vitamin D (Caltrate + D) 1 tab PO DAILY [facility] Last Admin: 12/11/17 08:44 Dose: 1 tab Citalopram Hydrobromide (Celexa) 30 mg PO DAILY [facility] Last Admin: 12/11/17 08:45 Dose: 30 mg Clopidogrel Bisulfate (Plavix) 75 mg PO DAILY [facility] Last Admin: 12/11/17 08:46 Dose: 75 mg Docusate Sodium (Colace) 100 mg PO BID [facility] Last Admin: 12/11/17 08:45 Dose: 100 mg Ergocalciferol (Vitamin D-2) 50,000 unit PO Q7D@0900 [facility] Last Admin: 12/08/17 08:58 Dose: 50,000 unit Furosemide (Lasix) 40 mg PO DAILY [facility] Last Admin: 12/11/17 08:46 Dose: 40 mg Glucosamine/Chondroitin (Osteo Bi-Flex) 1 cap PO BID [facility] Last Admin: 12/11/17 08:45 Dose: 1 cap Lamotrigine (Lamictal) 100 mg PO HS [facility] Last Admin: 12/10/17 21:44 Dose: 100 mg Levothyroxine Sodium (Synthroid) 50 mcg PO ACB [facility] Last Admin: 12/11/17 05:51 Dose: 50 mcg Magnesium Hydroxide (Mom) 30 ml PO DAILY [facility] Last Admin: 12/11/17 08:48 Dose: Not Given Magnesium Oxide (Magox) 200 mg PO DAILY [facility] Last Admin: 12/11/17 08:46 Dose: 200 mg Metoprolol Tartrate (Lopressor) 25 mg PO BIDWM [facility] Last Admin: 12/11/17 08:45 Dose: 25 mg Multivitamins/Minerals (Vision) 1 tab PO DAILY [facility] Last Admin: 12/11/17 08:46 Dose: 1 tab Pantoprazole Sodium (Protonix Tab) 40 mg PO ACB [facility] Last Admin: 12/11/17 05:51 Dose: 40 mg Polyethylene Glycol (Miralax) 17 gm PO DAILY [facility] Last Admin: 12/11/17 08:47 Dose: 17 gm Potassium Chloride (K-Dur 10 Meq Tablet) 10 meq PO WB [facility] Last Admin: 12/11/17 08:45 Dose: 10 meq Simvastatin (Zocor) 40 mg PO HS [facility] Last Admin: 12/10/17 21:44 Dose: 40 mg Tramadol HCl (Ultram) 50 mg PO Q4H PRN PRN Reason: Pain Last Admin: 12/11/17 07:37 Dose: 50 mg Current Medical Issues: Atrial fibrillation, pain management, constipation, anemia Comments: I certify that I personally led the interdisciplinary team meeting and agree with comments, barriers and goals indicated. Team meeting was held in the patient's room with the patient and the following family members present: patient's daughter Ms. Polo has continued to report significant discomfort in the right knee with ambulation. She is comfortable at rest. SEEMS to benefit her adequately however. She denies shortness of breath. Her hemoglobin has been stable. Her bowels are moving. Her appetite is reasonable. - Physical Therapy Bed, Chair, Wheelchair Transfer Assist: Stand By Assist/Supervision Ambulation Ability: Stand By Assist/Supervision Ambulation Distance: 159 Wheelchair Propulsion Ability: Maximal Assistance Wheelchair Propulsion Distance: 65 Stair Climbing Ability: Maximal Assistance Number of Steps Climbed: 4 Car Transfer Ability: Minimal Assistance Comments: Patient is making good progress toward her goals. She is standby assist level for most functional modalities. Pain continues to be a significant limiting factor. - Occupational Therapy Eating Ability: Independent Grooming Ability: Stand By Assist/Supervision Bathing Ability: Stand By Assist/Supervision Upper Body Dressing Ability: Stand By Assist/Supervision Lower Body Dressing Ability: Stand By Assist/Supervision Tub Transfer Assist: Patient Refuses Toileting Assist: Modified Independent Toilet Transfer Assist: Stand By Assist/Supervision Comments: She is doing well with occupational therapy and is at supervision level for ADLs. Patient will start working on IADL goals and work on higher level balance during self-care tasks. She is cooperative with therapy and making progress. - Goals Physical Therapy Goals: 12/11/17. 1. Pt will ambulate at Modified Independent level for 150 ft using FWW. 2. Pt will be independent with her Home Exercise Program. Occupational Therapy Goals: 12/11/17 goals: 1) Upper body dressing Modified Independent (at supervision today). 2) Lower body dressing Modified Independent (at supervision today). 3) Bathing tasks at Modified Independent ( at supervision today). 4) Start working on kitchen and laundry tasks. - Barriers to Discharge Barriers to Attaining Goals: Pain Control - Care Plan Anticipated Length of Stay (days): 5 Anticipated DC Destination: Home, Self Care, Home Health Service I have led this team conference and agree with the plan. Interventions/Goals: She has done well with therapy. Pain is better controlled. Medically she seems stable. Does have intermittent atrial fibrillation. Discussed anticoagulation with her. 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 (She is on Plavix and aspirin already). She has additional goals to meet particularly with occupational therapy and will plan dismissal early to mid week.
[2017-12-11] MEDS: SIMVASTATIN 40 MG TABLET PO SCH (20:46)
[2017-12-11] MEDS: LAMOTRIGINE 100 MG TABLET PO SCH (20:46)
[2017-12-12] MEDS: TRAMADOL 50 MG TABLET PO PRN (04:48)
[2017-12-12] MEDS: LEVOTHYROXINE 50 MCG TABLET PO SCH ×2 (04:48→06:06)
[2017-12-12] MEDS: PANTOPRAZOLE 40 MG TABLET PO SCH ×2 (04:49→06:06)
[2017-12-12] MEDS: DOCUSATE SODIUM 100 MG CAPSULE PO SCH ×2 (08:35→20:55)
[2017-12-12] MEDS: CITALOPRAM 20 MG TABLET PO SCH (08:35)
[2017-12-12] MEDS: MAGNESIUM OXIDE 400 MG TABLET PO SCH (08:36)
[2017-12-12] MEDS: CALCIUM 600 + VIT D 400 TABLET PO SCH (08:36)
[2017-12-12] MEDS: CLOPIDOGREL 75 MG TABLET PO SCH (08:36)
[2017-12-12] MEDS: ASPIRIN *EC* 81 MG TABLET PO SCH (08:36)
[2017-12-12] MEDS: MULTI-VIT + MINERAL (Opti-gen) TABLET PO SCH (08:36)
[2017-12-12] MEDS: GLUCOSAMINE/CHONDROITIN 500 MG/400 MG CAPSULE PO SCH ×2 (08:36→20:55)
[2017-12-12] MEDS: FUROSEMIDE 40 MG TABLET PO SCH (08:36)
[2017-12-12] MEDS: POLYETHYL GLYCOL 3350 17gm PACKET PO SCH (08:37)
--- NOTE | 2017-12-12 18:54 | Progress Note ---
- Date 12/12/17 Subjective: Ale reports that other than right knee pain (which is improving), she is doing well and has no concerns. She denies any chest pain or shortness of breath. She has not had any abdominal or gi concerns, and states that her bowels have been moving. Her strength is improving though sometimes it feels like her right knee will give out on her. Objective Vital signs: Temperature 99.0 F 12/12/17 16:00 Pulse Rate 70 12/12/17 16:00 Respiratory Rate 18 12/12/17 16:00 Blood Pressure 115/65 12/12/17 16:00 Pulse Oximetry 97 12/12/17 16:00 Rhythm: Atrial Fibrillation with Normal Ventricular Rate Height/Weight/BMI: Height 1.6 m Weight 82 kg Body Mass Index 32.0 - Constitutional Present: no acute distress, well nourished, well developed, obese - Routine HEENT Exam Head: Present: normocephalic Eye: Present: PERRL ENT: Present: mucous membranes moist - Routine Respiratory Exam Present: decreased breath sounds (both bases), CTA bilaterally - Routine Cardiovascular Exam Present: irregularly irregular. Absent: bradycardia, tachycardia - Routine Abdominal Exam Present: soft, normoactive bowel sounds, non distended, non tender - Routine Extremities Exam Present: edema (right (op) leg), joint swelling (right (op) knee). Absent: calf tenderness Comments: dressing on right knee - Routine Musculoskeletal Exam Musculoskeletal: Present: joint swelling (right knee) - Routine Skin Exam Present: intact, dry, warm, ecchymosis (right leg (expected)) - Routine Neurological Exam Present: alert, oriented X3, normal speech - Routine Psychiatric Exam Present: normal affect, normal thought process, cooperative Results - Labs CBC & Chem 7: 12/11/17 04:17 12/08/17 04:08 Assessment and Plan (1) S/P total knee arthroplasty Current visit: Yes Status: Acute Assessment and Plan: IMPRESSION ABLA Rt total knee arthroplasty 12/03/17 Constipation Acute debility Intolerance to narcotics Anxiety Depression AFib - not anticoagulated CAD (coronary artery disease) with history of ME HTN (hypertension) (Chronic Medical) High cholesterol (Chronic Medical) Macular degeneration Breast cancer s/p breast lumpectomy over 11 years ago; no chemotherapy, hormonal therapy, nor radiation. No recurrence has been noted. Obesity, BMI 32 PLAN Medically stable. HR under control. hgb stable at 9.2 Continue therapy/pain meds per attending. Poss d/c early to mid next week. Resuscitation Status: Full Code - Physician Narrative Narrative: Date: 12/12/17 Time: 1850 Hospital Course Summary Disclaimer: The visit summary below is not to be considered part of the above Progress Note. Hospital Course: 12/08 Agree with PT/OT and analgesia orders per Dr. Madrid. Agree with tele d/t known hx of A-fib. Pt follows with Dr. Femi Altamirano. Mild ABLA - monitor for symptoms, declining hgb. Constipation improved (pt had BM this am) - will continue with bowel regimen. Resume home meds. VSS. 12/10 Overall doing well with therapy Discontinue telemetry- known A-fib that is rate controlled Chronically on ASA and Plavix Pain is being well controlled on Tylenol and tramadol Continue to encourage work with PT and OT for ongoing strengthening
[2017-12-12] MEDS: SIMVASTATIN 40 MG TABLET PO SCH (20:55)
[2017-12-12] MEDS: LAMOTRIGINE 100 MG TABLET PO SCH (20:55)
[2017-12-13] MEDS: PANTOPRAZOLE 40 MG TABLET PO SCH ×2 (03:55→05:38)
[2017-12-13] MEDS: LEVOTHYROXINE 50 MCG TABLET PO SCH ×2 (03:55→05:38)
[2017-12-13] MEDS: CITALOPRAM 20 MG TABLET PO SCH (09:56)
[2017-12-13] MEDS: MULTI-VIT + MINERAL (Opti-gen) TABLET PO SCH (09:56)
[2017-12-13] MEDS: FUROSEMIDE 40 MG TABLET PO SCH (09:57)
[2017-12-13] MEDS: ASPIRIN *EC* 81 MG TABLET PO SCH (09:57)
[2017-12-13] MEDS: MAGNESIUM OXIDE 400 MG TABLET PO SCH (09:57)
[2017-12-13] MEDS: CLOPIDOGREL 75 MG TABLET PO SCH (09:57)
[2017-12-13] MEDS: CALCIUM 600 + VIT D 400 TABLET PO SCH (09:58)
[2017-12-13] MEDS: DOCUSATE SODIUM 100 MG CAPSULE PO SCH ×2 (09:58→23:57)
[2017-12-13] MEDS: GLUCOSAMINE/CHONDROITIN 500 MG/400 MG CAPSULE PO SCH ×2 (09:58→21:44)
[2017-12-13] MEDS: POLYETHYL GLYCOL 3350 17gm PACKET PO SCH (09:59)
[2017-12-13] MEDS: SIMVASTATIN 40 MG TABLET PO SCH (21:44)
[2017-12-13] MEDS: LAMOTRIGINE 100 MG TABLET PO SCH (21:44)
[2017-12-13] MEDS: TRAMADOL 50 MG TABLET PO PRN (21:46)
[2017-12-14] MEDS: TRAMADOL 50 MG TABLET PO PRN (06:12)
[2017-12-14] MEDS: LEVOTHYROXINE 50 MCG TABLET PO SCH (06:13)
[2017-12-14] MEDS: PANTOPRAZOLE 40 MG TABLET PO SCH (06:13)
[2017-12-14] MEDS: MAGNESIUM OXIDE 400 MG TABLET PO SCH (08:43)
[2017-12-14] MEDS: CLOPIDOGREL 75 MG TABLET PO SCH (08:43)
[2017-12-14] MEDS: MULTI-VIT + MINERAL (Opti-gen) TABLET PO SCH (08:43)
[2017-12-14] MEDS: DOCUSATE SODIUM 100 MG CAPSULE PO SCH ×2 (08:43→20:12)
[2017-12-14] MEDS: CALCIUM 600 + VIT D 400 TABLET PO SCH (08:44)
[2017-12-14] MEDS: CITALOPRAM 20 MG TABLET PO SCH (08:44)
[2017-12-14] MEDS: FUROSEMIDE 40 MG TABLET PO SCH (08:44)
[2017-12-14] MEDS: POLYETHYL GLYCOL 3350 17gm PACKET PO SCH (08:45)
[2017-12-14] MEDS: ASPIRIN *EC* 81 MG TABLET PO SCH (08:45)
[2017-12-14] MEDS: GLUCOSAMINE/CHONDROITIN 500 MG/400 MG CAPSULE PO SCH ×2 (08:50→20:12)
--- NOTE | 2017-12-14 11:19 | IRU Progress Note ---
- Subjective/Serverity of Illness Date: 12/14/17 Ale was interviewed and examined in her room on acute inpatient rehabilitation. She reports fatigue after therapy but no particular shortness of breath and no chest pain. Her pain is reasonably controlled in the right knee on the tramadol. (She cannot tolerate typical narcotic pain medications due to excess confusion at home). She reports increased pain in the knee after therapy as anticipated. She is improving with therapy. Brief therapy update: She is standby assist and at times max assist for ambulation over 75 feet with a front-wheeled walker. In addition she is modified independent for transfers. She has made good gains with therapy and is now able to bend the knee 90. She is cooperative with therapy despite the pain. Update on medical issues were actively monitoring and managing as follows: 1. Uncontrolled pain and confusion while taking pain medication: Her pain is better controlled with the tramadol plus Tylenol. She has not experienced confusion on this regimen. 2. acute blood loss anemia: Her hemoglobin stable at 9.2 g percent. No evidence of further blood loss. 3. Paroxysmal atrial fibrillation: She is asymptomatic. Heart sounds regular at the present time. She is on Plavix and aspirin and not on any more potent anticoagulants. We have recommended that she check with her physician about Coumadin or similar agents. 4. Slow transit constipation: Her bowels are moving. Exam Vital Signs: Temperature 98.8 F 12/14/17 07:36 Pulse Rate 74 12/14/17 07:36 Respiratory Rate 16 12/14/17 07:36 Blood Pressure 140/69 H 12/14/17 07:36 Pulse Oximetry 93 12/14/17 07:36 Height/Weight/BMI: Height 1.6 m Weight 82 kg Body Mass Index 32.0 - Constitutional Present: mild distress (pain in the right knee after therapy as anticipated.), well nourished, well developed, cooperative - Routine HEENT Exam Head: Present: normocephalic Eye: Present: EOMI ENT: Present: mucous membranes moist, oropharynx clear - Routine Neck Exam Present: supple - Routine Respiratory Exam Present: CTA bilaterally. Absent: wheezes - Routine Cardiovascular Exam Present: RRR (it is recognized she has a history of atrial fibrillation. At the present time her heart sounds regular.), S1, S2. Absent: murmur - Routine Abdominal Exam Present: soft, normoactive bowel sounds, non distended. Absent: tenderness - Routine Extremities Exam Present: edema (her edema about the right knee is markedly improved.), normal capillary refill - Routine Skin Exam Present: dry, warm, ecchymosis (about the right knee) - Routine Neurological Exam Present: alert, oriented X3, CN II-XII intact - Routine Psychiatric Exam Present: normal affect, cooperative Results IRU - Labs Labs: Have reviewed all chart data including other providers notes. IRU A/P (1) S/P total knee arthroplasty Qualifiers: Laterality: right Qualified Code(s): Z96.651 - Presence of right artificial knee joint Current visit: Yes Status: Acute Patient is stable status post right total knee arthroplasty. Her pain management is improved and she is tolerating the tramadol without definite side effects. She is improving with therapy. (2) Hypertension Qualifiers: Hypertension type: essential hypertension Qualified Code(s): I10 - Essential (primary) hypertension Current visit: Yes Status: Chronic Her blood pressure is variable with readings in the 150s at times. However it is not clear if these were obtained at rest. Overall they are reasonably well controlled otherwise. (3) Acute blood loss anemia Current visit: Yes Status: Acute Most recent hemoglobin stable at 9.2 without evidence of further bleeding. (4) Slow transit constipation Current visit: Yes Status: Acute She is having stools. (5) Paroxysmal atrial fibrillation Current visit: Yes Status: Chronic DVT Prophylaxis: SCD's, Lovenox Resuscitation Status: Full Code - Course Hospital Course: Yogi Madrid MD: 12/08/17 10:49 Continues in atrial fibrillation. Pain management reasonable at present with extended release Tylenol. 12/10/17 11:33 Cooperative with therapy. We added on tramadol and that has been of help. 12/11/17 11:02 Pain management appears to be adequate. Mild edema as anticipated. Cooperative with therapy. 12/14/17 11:21 Doing well with therapy. Pain management doing well. Edema about the right knee is improved. - Interventions to Obtain Goals PT Treatment Plan: Balance/Proprioception, Functional Activities, Gait Training , Patient/Family Education, Therapeutic Exercise OT Treatment Plan: ADL (Basic Care), Balance Training, IADL, Pt./Family Education, Ther. Exercise for ADL Goals Progress/Modifications: She is doing well with therapy and making progress. Patient was maximal assistance for ambulation with a front-wheeled walker a couple days ago. We will see how today goes. With regard to her cardiac status she does have paroxysmal atrial fibrillation although sounds as though she is in a regular rhythm at present. We have discussed with her the importance of checking with her physician about getting on warfarin or a novel agent if appropriate. She is on aspirin and Plavix at the present time. Anticipate safe transfer to home tomorrow.
[2017-12-14] MEDS: LAMOTRIGINE 100 MG TABLET PO SCH (20:12)
[2017-12-14] MEDS: SIMVASTATIN 40 MG TABLET PO SCH (20:12)
[2017-12-15] MEDS: LEVOTHYROXINE 50 MCG TABLET PO SCH (05:55)
[2017-12-15] MEDS: PANTOPRAZOLE 40 MG TABLET PO SCH (05:56)
[2017-12-15 07:17] VITALS: BP 134/61; PULSE 78; RESP 16; TEMP 98.3; O2SAT 97
[2017-12-15] MEDS: CITALOPRAM 20 MG TABLET PO SCH (08:05)
[2017-12-15] MEDS: POLYETHYL GLYCOL 3350 17gm PACKET PO SCH (08:05)
[2017-12-15] MEDS: FUROSEMIDE 40 MG TABLET PO SCH (08:06)
[2017-12-15] MEDS: MAGNESIUM OXIDE 400 MG TABLET PO SCH (08:06)
[2017-12-15] MEDS: ERGOCALCIFEROL 50,000 UNIT CAPSULE PO SCH (08:06)
[2017-12-15] MEDS: MULTI-VIT + MINERAL (Opti-gen) TABLET PO SCH (08:06)
[2017-12-15] MEDS: GLUCOSAMINE/CHONDROITIN 500 MG/400 MG CAPSULE PO SCH (08:06)
[2017-12-15] MEDS: CLOPIDOGREL 75 MG TABLET PO SCH (08:06)
[2017-12-15] MEDS: DOCUSATE SODIUM 100 MG CAPSULE PO SCH (08:07)
[2017-12-15] MEDS: ASPIRIN *EC* 81 MG TABLET PO SCH (08:07)
[2017-12-15] MEDS: CALCIUM 600 + VIT D 400 TABLET PO SCH (08:07)
--- NOTE | 2017-12-15 10:04 | IRU Progress Note ---
- Subjective/Serverity of Illness Date: 12/15/17 Ms. Polo has done very well with therapy. She is much more ambulatory. Her pain is controlled. We discussed her tramadol and recommend that she slowly cut back on that as tolerated. In addition, we discussed her intermittent atrial fibrillation (although today she sounds quite regular). This was noted on the admission electrocardiogram. I asked her to check with her physicians (Dr. Altamirano and Dr. Ortiz) about this. It is possible that they would recommend not taking anything more potent and Plavix and aspirin and I will defer that to them. She denies any chest pain. She denies any shortness of breath. Her edema is minimal. Her bowels are moving. Exam Vital Signs: Temperature 98.3 F 12/15/17 07:16 Pulse Rate 78 12/15/17 07:16 Respiratory Rate 16 12/15/17 07:16 Blood Pressure 134/61 12/15/17 07:16 Pulse Oximetry 97 12/15/17 07:16 Height/Weight/BMI: Height 1.6 m Weight 79.3 kg Body Mass Index 32.0 - Constitutional Present: no acute distress, well nourished, well developed, obese, cooperative - Routine HEENT Exam Eye: Present: EOMI ENT: Present: mucous membranes moist, oropharynx clear - Routine Respiratory Exam Present: CTA bilaterally. Absent: wheezes - Routine Cardiovascular Exam Present: RRR (today she sounds quite regular.), S1, S2. Absent: murmur - Routine Abdominal Exam Present: soft, normoactive bowel sounds, non distended. Absent: tenderness - Routine Extremities Exam Present: edema (trace edema right lower extremity as anticipated. It is minimal. ) - Routine Skin Exam Present: dry, warm - Routine Neurological Exam Present: alert, oriented X3, CN II-XII intact - Routine Psychiatric Exam Present: normal affect IRU A/P (1) S/P total knee arthroplasty Qualifiers: Laterality: right Qualified Code(s): Z96.651 - Presence of right artificial knee joint Current visit: Yes Status: Acute She has done well with therapy and is stable for dismissal today. (2) Hypertension Qualifiers: Hypertension type: essential hypertension Qualified Code(s): I10 - Essential (primary) hypertension Current visit: Yes Status: Chronic (3) Acute blood loss anemia Current visit: Yes Status: Acute (4) Slow transit constipation Current visit: Yes Status: Acute (5) Paroxysmal atrial fibrillation Current visit: Yes Status: Chronic I gave her a note today to have her check with her physicians regarding the issue of further anticoagulation. I will defer to their opinion. DVT Prophylaxis: SCD's, Lovenox Resuscitation Status: Full Code - Course Hospital Course: Yogi Madrid MD: 12/08/17 10:49 Continues in atrial fibrillation. Pain management reasonable at present with extended release Tylenol. 12/10/17 11:33 Cooperative with therapy. We added on tramadol and that has been of help. 12/11/17 11:02 Pain management appears to be adequate. Mild edema as anticipated. Cooperative with therapy. 12/14/17 11:21 Doing well with therapy. Pain management doing well. Edema about the right knee is improved. 12/15/17 10:05 She has done well with therapy. Anticipate safe transition to her home environment. - Interventions to Obtain Goals PT Treatment Plan: Balance/Proprioception, Functional Activities, Gait Training , Patient/Family Education, Therapeutic Exercise OT Treatment Plan: ADL (Basic Care), Balance Training, IADL, Pt./Family Education, Ther. Exercise for ADL
--- NOTE | 2017-12-15 10:50 | Discharge Summary ---
Discharge Information Date of admission: 12/07/17 15:55 Anticipated date of discharge: 12/15/17 Attending Physician: Yogi Madrid MD Primary care physician: Bernardo Ortiz DO Consults: 12/07/17 16:33 Physician Consult [CONS] Routine Consulting Provider: Beverly uHdson Reason For Exam: medical management Ordering Provider has Notified Underwriting Manager: Yes - Discharge Diagnosis (1) S/P total knee arthroplasty Status: Acute (2) Hypertension Status: Chronic (3) Acute blood loss anemia Status: Acute (4) Slow transit constipation Status: Acute (5) Paroxysmal atrial fibrillation Status: Chronic 1. Status post right total knee arthroplasty 2. Acute blood loss anemia 3. Benign essential hypertension 4. Slow transit constipation 5. Paroxysmal atrial fibrillation - Laboratory Labs: 12/11/17 04:17 12/08/17 04:08 History of Present Illness HPI: Ms. Polo is a very pleasant 82-year-old female followed by Dr. Bernardo Ortiz. She underwent right total knee replacement by Dr. Hudson on December 03. She returned home in stable condition on December 04. She then presented back to the emergency department on December 07 with inability to ambulate due to severe pain. She was taking oxycodone at home but that was discontinued because she had severe confusion with that. She could no longer ambulate or tolerate outpatient care and was therefore admitted to acute inpatient rehabilitation. In addition, the patient has a history of acute blood loss anemia. Hemoglobin on the day of surgery or shortly thereafter was 10.7. On the day of admission to inpatient rehabilitation and was 9.6. She also complained of constipation. Finally, she has paroxysmal atrial fibrillation, which was documented in the emergency department. She is on Plavix and aspirin in this regard. It was recommended that she be cared for on acute inpatient rehabilitation for a multidisciplinary approach to her recovery. Hospital Course This is a general summary of the patient's hospital course. For more details refer to the complete medical record. The patient was admitted to acute inpatient rehabilitation on 12/07/2017. She was followed by the hospitalist service as well as Dr. Madrid. Her hemoglobin was monitored. He was initially 9.4 on December 08 and 9.2 on December 11. Her electrolytes remained stable. Clinically she seemed to be in a regular rhythm although does have history of paroxysmal atrial fibrillation. Pain management was initially difficult. She was placed on regular doses of acetaminophen. We then added on tramadol and she tolerated this well. The following levels of functional competence are to be considered preliminary information. The reader is encouraged to refer to actual therapy notes and reports for specific details. She was seen by occupational therapy and improved significantly in this area. At the conclusion of therapy she was independent for all activities of daily living. She was also seen by physical therapy. At the conclusion of her stay, she was modified independent for transfers. She was able to ambulate 75 feet at the level of standby assist level with a front-wheeled walker. Her pain was adequately controlled. We did give her a prescription for tramadol 50 mg #30 with no refills. We urged her to primarily use Tylenol and to decrease the use of tramadol as time goes on. She was able to eat and drink adequately without evidence of shortness of breath, chest pain, nausea or significant ongoing constipation. She will be followed up by Dr. Ortiz and Dr. Hudson. Hospital course: 12/08 Agree with PT/OT and analgesia orders per Dr. Madrid. Agree with tele d/t known hx of A-fib. Pt follows with Dr. Femi Altamirano. Mild ABLA - monitor for symptoms, declining hgb. Constipation improved (pt had BM this am) - will continue with bowel regimen. Resume home meds. VSS. 12/10 Overall doing well with therapy Discontinue telemetry- known A-fib that is rate controlled Chronically on ASA and Plavix Pain is being well controlled on Tylenol and tramadol Continue to encourage work with PT and OT for ongoing strengthening Time spent with patient: greater than 35 minutes Resuscitation Status: Full Code Discharge Plan - Med Rec/Dispo Referrals/Follow Up: Bernardo Ortiz DO [Family Provider] - (Dr. Daysi Ortiz on 12/24/17 at 12:45 pm for Hosp. follow-up. [address] [place] [address]) Bryson Hudson MD [Physician] - (December 21, 2017 at 11:30 am) [place] Instructions: Knee Replacement (GEN) Prescriptions: New Tramadol [Ultram] 50 mg PO Q4H PRN #30 tab PRN Reason: Pain Continue Simvastatin [Zocor] 40 mg PO HS #0 Calcium Carbonate/Vitamin D3 [Calcium 600 + Vit D Tablet] 1 tab PO BID Furosemide [Lasix 40 mg Tab] 40 mg PO DAILY Magnesium 250 mg PO DAILY Vit C/Vit E/Lutein/Min/[place]-3 [Ocuvite Softgel] 1 cap PO DAILY lamoTRIgine [Lamotrigine] 100 mg PO HS Docusate Sodium [Colace] 100 mg PO BID cap Milk of Magnesia [Mom] 30 ml PO DAILY udc PEG 3350 17gm PACKET [Miralax] 17 gm PO DAILY packet Levothyroxine Tab [Synthroid] 50 mcg PO DAILY #0 Aspirin [Ecotrin] 81 mg PO DAILY #0 Potassium Chloride 10 meq PO DAILY #0 Pantoprazole Sodium [Protonix] 40 mg PO DAILY #0 Clopidogrel [Plavix] 75 mg PO DAILY Glucosamine/MSM/Chondroitin A [Glucosamine Chondroit MSM Tab] 1 tab PO BID Metoprolol Tartrate [Lopressor] 25 mg PO BID Citalopram [Celexa] 30 mg PO DAILY Acetaminophen [Tylenol] 650 mg PO QID tab Ergocalciferol (Vit. D2) [Vitamin D-2] 50,000 unit PO DAILY Discontinued Oxycodone *IR* [Roxicodone *Ir*] 5 - 15 mg PO Q3H PRN #30 tab PRN Reason: Pain - Disposition 01 Discharged Home, Self-Care - Dismissal Complete Discharge Instructions are:: Complete
--- NOTE | 2017-12-15 10:54 | Letter to Referring Physician ---
Dear Drs. Ortiz and Tristan, This is a brief note to bring you up-to-date on the status of Ale Polo and her stay on the acute inpatient rehabilitation unit at [facility]. As you are likely aware, this patient was admitted to the acute care hospital on 12/03/17 for right total knee arthroplasty. She was stable and sent home on December 04. However at home she had significant problems with pain management and had a lot of confusion with oxycodone. In addition, she developed multiple functional deficits and was seen back in the emergency department. She was admitted to inpatient rehabilitation unit at [facility] on December 07, 2017. While on inpatient rehabilitation, this patient was seen by occupational therapy and physical therapy and improved overall in their functional ability. We also monitored and managed the patient's constipation and pain management while on Acute Rehab. Please see a copy of the history and physical examination as well as discharge summary enclosed with this letter for further details. She was given a prescription for tramadol 50 mg #30 without refills at the time of dismissal. We reversed her to rely on Tylenol predominantly and to decrease the use of tramadol as time goes on. At the time of evaluation in the emergency department at [facility], she was noted to be in atrial fibrillation. She does have history of this. She is currently on Plavix and aspirin only. I asked her to check with Dr. Ortiz as well as her occup therapist, Dr. Altamirano, with regard to whether she should be on additional blood thinners. We did not start her on anything here. Thank you for allowing us to be involved in this nice patient's care. Please contact me directly should you have any questions regarding their stay on the inpatient rehabilitation unit. Sincerely, Yogi Madrid M.D.
== END 2017-12-15 11:50 | disposition home health service (06) | DRG 560 ==
PROVIDERS: ADMIT Internal Medicine; ATTEND Internal Medicine